=== PATIENT | female | born 1965 | race Caucasian/White ===

== ENCOUNTER 2020-11-05 21:39 | Emergency (ER) | payer OTHER ==
[~2020-11-05 21:39] MED LIST: ALL DAY ALLERGY10 M2 PO; FLONASE 0.05% N16 GM; GLUCOPHAGE500 MG PO; HYDROCODON-ACE1 EAC4 PO; IMDUR ER TAB 3030 MG PO; KLONOPIN TAB 00.5 MG PO; LIPITOR40 MG PO; NEURONTIN 300300 MG PO; NORVASC10 MG PO; PLAVIX 75 MG TA75 MG PO; PRINIVIL5 MG PO; ZANTAC150 MG PO
[2020-11-05 22:17] LABS: HEMOGLOBIN 15.4 gm/dl (12.3-15.3); RED BLOOD COUNT 4.57 M/UL (4.00-5.10); WHITE BLOOD COUNT 6.1 K/UL (4.5-11.0)
[2020-11-05 22:37] LABS: BUN/CREATININE RATIO 18 (0-10)
[2020-11-06] MEDS ORDERED: OMNICEF 300 MG300 MG PO (01:30)
== END 2020-11-06 03:30 | disposition home or self-care (01) ==
LOC: ER1 21:39
PROVIDERS: Physician Assistant
DX: K74.60 Unspecified cirrhosis of liver (principal); N39.0 Urinary tract infection, site not specified; E11.9 Type 2 diabetes mellitus without complications; I10 Essential (primary) hypertension; Z90.710 Acquired absence of both cervix and uterus; F17.200 Nicotine dependence, unspecified, uncomplicated
CPT/HCPCS: 71045; 80053; 81001; 82140; 83690; 85025; 85610; 85730; 93005; 99284; C1729

== ENCOUNTER 2020-12-14 18:34 | Emergency (ER) | payer OTHER ==
[~2020-12-14 18:34] MED LIST changes: +OMNICEF 300 MG300 MG PO
[2020-12-14 19:07] LABS: HEMOGLOBIN 16.1 gm/dl (12.3-15.3); RED BLOOD COUNT 5.04 M/UL (4.00-5.10); WHITE BLOOD COUNT 6.1 K/UL (4.5-11.0)
[2020-12-14 19:31] LABS: BUN/CREATININE RATIO 18 (0-10)
[2020-12-14 22:08] LABS: AMYLASE, BODY FLUID 11 U/L; LDH, BODY FLUID 32 U/L; TOTAL PROTEIN, BODY FLUID 0.8 gm/dL
[2020-12-14 22:59] LABS: BODY FLUID SOURCE PERITONEAL; MONONUCLEAR CELLS 92 (75-100); POLYMORPHONUCLEAR % 8 (0-25); RBC (MANUAL) 32; WBC (MANUAL) 139
[2020-12-14] MEDS ORDERED: OMNICEF 300 MG300 MG PO (23:05)
== END 2020-12-15 00:19 | disposition home or self-care (01) ==
LOC: ER1 18:34
PROVIDERS: Emergency Medicine; Physician Assistant Medical
DX: R10.84 Generalized abdominal pain (principal); E11.9 Type 2 diabetes mellitus without complications; Z79.4 Long term (current) use of insulin; Z88.5 Allergy status to narcotic agent
CPT/HCPCS: 80053; 81001; 82140; 82150; 82945; 82962; 83615; 83690; 84157; 85025; 85610; 87070; 87077; 87086; 87186; 89051; 99284; C1729; C1769; J7030; Q9967